=== PATIENT | female | born 1960 | race Caucasian/White ===

== ENCOUNTER 2022-04-16 17:46 | Emergency (ER) | payer BC ==
[~2022-04-16] VITALS: Ht 154.9 cm; Wt 80.7 kg
[2022-04-16 17:55] VITALS: BP_SYST 153
--- NOTE | 2022-04-16 18:01 | NUR ---
Pt triaged and placed in waiting room pending bed availability.
[2022-04-16 18:33] LABS: BASOPHILS % (AUTO) 0.2 % (0.0-2.0); EOSINOPHILS # (AUTO) 0.4 K/uL (0.0-0.4); EOSINOPHILS % (AUTO) 3.6 % (0.0-4.0); HEMATOCRIT 37.6 % (36-48); LYMPHOCYTES # (AUTO) 3.4 K/uL (1.0-5.5); MEAN CORPUSCULAR HEMOGLOBIN 28 pg (27-31); MEAN CORPUSCULAR HGB CONC 35 % (32-36); MEAN CORPUSCULAR VOLUME 82 fL (79.0-98.0); MONOCYTES % (AUTO) 10.5 % (1.7-9.3); NEUTROPHILS # (AUTO) 5.2 K/uL (1.8-7.7); NEUTROPHILS % (AUTO) 51.7 % (40.0-70.0); PLATELET COUNT (AUTO) 419 K/uL (130-430); RED BLOOD CELL COUNT(AUTO) 4.61 MIL/uL (4.2-6.2); RED CELL DISTRIBUTION WIDTH 14.2 % (9.0-15.0)
[2022-04-16 18:46] LABS: CALCIUM 8.8 mg/dL (8.4-11.0); CREATININE 1.06 mg/dL (0.55-1.30)
[2022-04-16 18:51] LABS: ALBUMIN 3.7 g/dL (3.4-4.8); TOTAL BILIRUBIN 0.2 mg/dL (0.0-1.0)
[2022-04-16 19:39] LABS: BILIRUBIN,URINE NEGATIVE (NEGATIVE); BLOOD, URINE NEGATIVE (NEGATIVE); CLARITY/URINE CLEAR (CLEAR); COLOR,URINE YELLOW (YELLOW); GLUCOSE,URINE NEGATIVE (NEGATIVE); KETONES,URINE NEGATIVE (NEGATIVE); LEUKOCYTE ESTERASE ,URINE NEGATIVE (NEGATIVE); NITRITE, URINE NEGATIVE (NEGATIVE); PROTEIN URINE NEGATIVE (NEGATIVE); UROBILINOGEN,URINE 0.2 (0.2-1.0)
--- NOTE | 2022-04-16 20:58 | NUR ---
ER Dr. OREILLY at bedside examining patient.
--- NOTE | 2022-04-16 20:59 | NUR ---
Patient to ER bed 05 to gown for evaluation. Side rails up. Report given to SADAF HAYNES
--- NOTE | 2022-04-16 21:22 | NUR ---
Patient brought in from home complaining of non radiating intermittent sharp LLQ abdominal pain x last 3 weeks. Denies nausea, vomiting, diarrhea, constipation. Denies fever, chills, myalgias, rash. Denies dyspnea, cough, sputum production. Denies flank pain, dysuria, hematuria, urgency.
[2022-04-16 22:10] VITALS: BP_SYST 132
[2022-04-16] MEDS ORDERED: AUG875 PO (22:12)
--- NOTE | 2022-04-16 22:38 | NUR ---
Patient given written and verbal discharge instructions and verbalizes understanding. ER MD discussed with patient the results and treatment provided. Patient in stable condition. ID arm band removed. NO RX given. Patient educated on pain management and to follow up with PMD. Pain Scale . Opportunity for questions provided and answered.
== END 2022-04-16 22:10 | disposition home or self-care (01) ==
LOC: SED 17:46
DX: K57.92 Diverticulitis of intestine, part unspecified, without perforation or abscess without bleeding (principal); R10.32 Left lower quadrant pain; E07.9 Disorder of thyroid, unspecified; Z12.11 Encounter for screening for malignant neoplasm of colon; Z86.010 Personal history of colon polyps; Z79.899 Other long term (current) drug therapy
CPT/HCPCS: 36415; 76376; 80053; 81003; 83690; 85025; 99284